=== PATIENT | female | born 1985 | race Caucasian/White ===

== ENCOUNTER 2020-02-29 11:45 | Outpatient (CLI) | payer BC, SELFPAY ==
--- NOTE | ~2020-02-29 | MMUS_ITS ---
EXAMINATION: MM diagnostic crystal BI w alexander, US breast LT limited HISTORY: Palpable lumps of the upper outer quadrant of the left breast. TECHNIQUE: Craniocaudal, mediolateral, and mediolateral oblique 3-D tomosynthesis images of the breas ts were performed and synthetic 2-D images were generated. CAD analysis was submitted and interpreted . High resolution limited left breast ultrasound was performed. COMPARISON: None, baseline BREAST PARENCHYMAL COMPOSITION: The breasts are heterogeneously dense, which may obscure small masses . FINDINGS: MAMMOGRAPHIC FINDINGS: There is no evidence of suspicious mass, calcification, or architectural distortion in either breast to suggest malignancy. No mammographic correlate is identified for the reported palpable abnormalit ies of the left breast. ULTRASOUND: There is no evidence of focal abnormal solid or cystic lesion in the vicinity of the reported palpabl e abnormality of concern. IMPRESSION: 1. No specific mammographic or sonographic correlate is identified for the reported palpable abnormal ity of concern of the left breast. Further evaluation at this time should be based on clinical assess ment. Continued follow-up physical examination is recommended. 2. Recommend routine screening mammography beginning at age 40. BI-RADS Category 1: Negative Reviewed, dictated and finalized at location A. IMPRESSION: 1. No specific mammographic or sonographic correlate is identified for the repo rted palpable abnormality of concern of the left breast. Further evaluation at this time should be based on clinical assessment. Continued follow-up physical examination is recommended. 2. Recommend routine screening mammography beginning at age 40. BI-RADS Category 1: Negative
== END 2020-02-29 11:46 | disposition home or self-care (01) ==
PROVIDERS: PCP Family Medicine; Visit Provider Obstetrics & Gynecology
DX: N63.20 Unspecified lump in the left breast, unspecified quadrant (principal)
CPT/HCPCS: 76642; 77062; 77066; G0279

== ENCOUNTER 2025-03-11 20:06 | Emergency (ER) | payer BC, SELFPAY ==
--- NOTE | ~2025-03-11 | CT_ITS ---
CT of the Abdomen and Pelvis: Indication: Abdominal pain Technique: 2.5 mm axial scans were obtained through the abdomen and pelvis following intravenous adm inistration of 100 cc of Omnipaque 350. Dose reduction technique was used on this scan by utilizing a utomated exposure control and iterative reconstruction technique. The dose-length product (DLP) was 2 77.23 mGy-cm. Findings: Scans through the lung bases are unremarkable. The liver, spleen, pancreas, gallbladder, adrenals and kidneys are within normal limits. No evidence of aortic aneurysm. No lymphadenopathy. There is wall thickening and mild pericolonic inflammatory change extensively involving the descendin g colon. No abscess or free air. Images through the pelvis were performed. Urinary bladder unremarkable. No pelvic mass seen. No ascit es. Impression: Infectious/inflammatory colitis involving the descending colon. Reviewed, dictated and finalized at location . Impression: Infectious/inflammatory colitis involving the descending colon.
[2025-03-11 20:07] VITALS: BP 142/98; PULSE 70; RESP 16; TEMP 36.4; O2SAT 98
--- OUTSIDE RECORDS SUMMARY | 2025-03-11 20:08 | XMS_ITS | Clinical Summary ---
Author Organization [facility] Address [address] [place] [address] Care Team Providers Care Curriculum Advisory Teacher Name Role Phone Lennox Blackmon MD Primary Care Provider [phone] Allergies Active Allergy Reactions Criticality Noted Date Comments Oxycodone Hives High 02/14/2014 Medications ALPRAZolam (XANAX) 1 mg tablet Take 1 mg by mouth nightly as needed for Anxiety. Active etonogestrel-Ethin yl Estradiol (NUVARING) 0.12-0.015 mg/24 hr RingIndications:We ll woman exam with routine gynecological exam Insert one ring for 3 weeks, remove for 1 week,repeat again.. 1 Ring 11 7 Active Active Problems Problem Noted Date Diagnosed Date RLTCS 09/1909/19/2015 History of PCOS 06/01/2014 Anovulation 06/01/2014 Resolved Problems Problem Noted Date Diagnosed Date Resolved Date Diet controlled gestational diabetes mellitus in third trimester 08/23/2015 01/07/2017 Supervision of normal pregna ncy in third trimester 03/26/2015 01/07/2017 Amenorrhea 06/01/2014 03/26/2015 Immunizations Immunization Administration Dates Next Due (Treatful)(12 YR UP) COVID-19 VACCINE - EMERGENCY USE AUTHORIZATION, MRNA, [id number](PF) 30 MCG/0.3 ML IM SUSP 10/27/2020 Influenza Seasonal Unspecifi ed Formulation IM 08/04/2024,09/04/2023,09/04/2023,2020,08/18/2020,08/21/2019 Social History Tobacco Use Types Packs/Day Years Used Date Smoking Tobacco: Former Cigarettes 0 02/15/2004 - 01/03/2015 Smokeless Tobacco: Never Alcohol Use Standard Drinks/Week Comments No 0 (1 standard drink = 0.6 oz pur e alcohol) Comments No Sex and Gender Information Value Date Recorded Sex Assigned at Not on file Legal Sex Female 9:18 AM CDT Gender Identity Not on file Sexual Orientation Not on file Last Filed Vital Signs Vital Sign Reading Time Taken Comments Blood Pressure 149/94 01/07/2017 10:00 AM BLACKENER Pulse 80 01/07/2017 10:00 AM BLACKENER Temperature 36.8 C (98.2 F) 09/23/2015 7:22 AM BLACKENER Respiratory Rate 16 09/23/2015 7:22 AM BLACKENER Oxygen Saturation 98% 09/23/2015 7:22 AM BLACKENER Inhaled Oxygen Concentration - - Weight 57.2 kg (126 lb) 01/07/2017 10:00 AM BLACKENER Height 157.5 cm (5' 2 ) 01/07/2017 10:00 AM BLACKENER Body Mass Index 23.05 01/07/2017 10:00 AM BLACKENER Plan of Treatment Health Maintenance Due Date Last Done Comments HEPATITIS B VACCINES (1 of 3 - 19+ 3-dose series) 2003 HPV/Cotest (21-29) 01/07/2022 01/07/2017, 0 03/12/2015, 02/14/2014 HPV/Cotest (30-65) 01/07/2022 01/07/2017, 0 03/12/2015, 02/14/2014 CERVICAL CANCER SCREENING 12/17/2023 PAP SMEAR 12/17/2023 12/17/2020, 11/08, 01/07/2017, Additional history exists COVID-19 Vaccine ( season) 2024 10/27/2020 BREAST CANCER SCREENING 2024 02/29/2020, 02/28 DTAP/TDAP/TD VACCINES (3 - Td or Tdap) 06/17/2026 06/17/2016, 07/27/2010 INFLUENZA VACCINE Completed 08/04/2024, , 09/04/2023, Additional history exists HPV VACCINES Aged Out No longer eligi ble based on patient's age to complete this topic Procedures Procedure Name Priority Date/Time Associated Diagnosis Comments CERV/VAG CYTO SCREEN PAP RLFX HPV Routine 01/07/2017 10:17 AM BLACKENER Well woman exam with routine gynecological exam from Last 3 Months or Most Recently Relevant to Health Maintenance Results * CERV/VAG CYTOPATH, THIN PREP IMAGR RFLX HPV (01/07/2017 10:17 AM BLACKENER) CLINICAL INFORMATION SEE COMMENT 01/14/2017 9:52 AM BLACKENER [facility] Comment:Information not prov ided LAST MENSTRUAL PERIOD SEE COMMENT 01/14/2017 9:52 AM BLACKENER [facility] Comment:Information not prov ided PREV PAP: SEE COMMENT 01/14/2017 9:52 AM BLACKENER [facility] Comment:Information not prov ided PREV BX: SEE COMMENT 01/14/2017 9:52 AM BLACKENER [facility] Comment:Information not prov ided SOURCE Endocervix 01/14/2017 9:52 AM BLACKENER [facility] ADEQUACY: SEE COMMENT 01/14/2017 9:52 AM BLACKENER [facility] Comment: Satisfactory for evaluation. Endocervical/transformation zone component present. Age and/or menstrual status not provided PAP INTERP SEE COMMENT 01/14/2017 9:52 AM BLACKENER [facility] Comment:Negative for intraep ithelial lesion or malignancy. COMMENT SEE COMMENT 01/14/2017 9:52 AM BLACKENER [facility] Comment: This Pap test has been evaluated with computer assisted technology. LEAD INSPECTOR: SEE COMMENT 2016 9:52 AM BLACKENER [facility] Comment: SAMIR, CT(ASCP) CT screening location: [place] [address] [address] [address] Genital SWAB OF ENDOCERVIX / Unknown 01/07/2017 10:17 AM BLACKENER 01/07/2017 8:58 PM BLACKENER Narrative [facility] - 01/14/2017 9:52 AM BLACKENER Performing Organization Information: Site ID: [place] Name: [facility] Address: [address] [place] [address] Director: Pedro Raya MD us Cesar Lea MD PATHOLOGY/CYTOLOGY ORDERABLES Fi nal Result [facility] from Last 3 Months or Most Recently Relevant to Health Maintenance Insurance [facility] [employer] ACCESS CHOICE Advance Directives For more information, please contact: [phone] * Full Code (Latest Code Status on File) Date Activated Date Inactivated Comments 09/19/2015 8:19 PM 09/23/2015 3:04 PM * Full Code Date Activated Date Inactivated Comments 09/19/2015 4:24 PM 09/19/2015 8:19 PM Care Teams Curriculum Advisory Teacher Relationship Specialty Start Date End Date Lennox Blackmon MD PCP - General Family Practice 02/14/14
--- OUTSIDE RECORDS SUMMARY | 2025-03-11 20:08 | XMS_ITS | Clinical Summary ---
Author Organization [facility] Address [address] [place] [address] Care Team Providers Care Tank Car Loader Name Role Phone Cesar Lea MD Unavailable Yonas Clemons MD Primary Care Provider [phone] Source Comments [facility],non-owned Affiliates and Associated Physician Practices is amultiple site organization consisting of ambulatory clinics and hospital sitesin [place], [place], [place] and [place]. This disclosure is being madepursuant to the Care Everywhere program and may not contain all information available regarding this patient. Last updated 18.[facility] Allergies Active Allergy Reactions Criticality Noted Date Comments Oxycodone-Acetaminophen 10/25/2013 Hives and itching Medications * Be aware that medications may not be up to date on this document. Alwaysverify current medications with the patient. ALPRAZolam (XANAX) 1 MG tablet Take 1 Tab by mouth once daily as needed. 30 Tab 0 01/01/2015 Active amphetamine-dext roamphetamine XR 24hr (ADDERALL XR) 30 MG capsule Take 1 Cap by mouth once daily. 30 Cap 0 01/14/2015 Active meclizine (ANTIVERT) 25 MG tablet Take 1 Tab by mouth 3 times daily as needed for Dizziness. 30 Tab 1 02/19/2015 Active Active Problems Problem Noted Date Diagnosed Date ADD (attention deficit disorder) 10/26/2014 Migraines Anxiety Comments Yes Immunizations Immunization Administration Dates Next Due INFLUENZA VACCINE, TRIV. (AF LURIA, FLUZONE TRIVALENT; 6MO+) (IIV3) 10/25/2013 DTaP VACCINE IM (6wk-6yrs) 07/27/2010 HEP B VACCINE ADOL/ADULT 2 DOSE 10/22/1997,05/14,04/12/1997 MMR 07/10/1993,02/07/1986 Social History Tobacco Use Types Packs/Day Years Used Date Smoking Tobacco: Never Alcohol Use Standard Drinks/Week Comments No 0 (1 standard drink = 0.6 oz pur e alcohol) Comments Yes Sex and Gender Information Value Date Recorded Sex Assigned at Not on file Legal Sex Female 10:32 AM CYLINDER BATCHER Gender Identity Not on file Sexual Orientation Not on file Last Filed Vital Signs Vital Sign Reading Time Taken Comments Blood Pressure 118/70 02/19/2015 10:30 AM CDT Pulse 76 02/19/2015 10:02 AM CDT Temperature 37.2 C (98.9 F) 02/19/2015 10:02 AM CDT Respiratory Rate 20 02/19/2015 10:02 AM CDT Oxygen Saturation - - Inhaled Oxygen Concentration - - Weight 66.7 kg (147 lb) 02/19/2015 10:02 AM CDT Height 157.5 cm (5' 2 ) 02/19/2015 10:02 AM CDT Body Mass Index 26.89 02/19/2015 10:02 AM CDT Plan of Treatment Health Maintenance Due Date Last Done Comments MAMMOGRAM 1984 HIV SCREENING 1999 HEPATITIS C SCREENING 11/15/2002 LIPID TESTING 10/26/2019 10/26/2014, 10/27/2013 DTAP/TDAP/TD VACCINES (2 - Tdap) 07/27/2020 07/27/2010 COVID-19 VACCINE (1 - 2023-2 5 season) 2024 DEPRESSION SCREENING 11/08/2024 INFLUENZA VACCINE (Season Ended) 2025 10/25/2013 ZOSTER VACCINE (1 of 2) 2034 Respiratory Syncytial Virus (RSV) Vaccine Pt: or over 60 yrs (1 - 1-dose 75+ series) 2059 HEPATITIS B VACCINE Completed 10/22/1997, 05/14/1997, 04/12/1997 HIB VACCINE Aged Out No longer eligi ble based on patient's age to complete this topic HPV VACCINE Aged Out No longer eligi ble based on patient's age to complete this topic MENINGOCOCCAL (Group B) VACCINE SHARED DECISION-MAKING Aged Out No longer eligible based on patient's age to complete this topic MENINGOCOCCAL GROUPS A/C/Y/W VACCINE Aged Out No longer eligible b ased on patient's age to complete this topic PNEUMOCOCCAL VACCINE Aged Out No long er eligible based on patient's age to complete this topic Procedures Procedure Name Priority Date/Time Associated Diagnosis Comments LIPID PROFILE Routine 10/26/2014 10:11 AM CYLINDER BATCHER Annual physical exam Lipid screening from Last 3 Months or Most Recently Relevant to Health Maintenance Results * (ABNORMAL) LIPID PROFILE (10/26/2014 10:11 AM CYLINDER BATCHER) Cholesterol 173 100 - 199 mg/dL [facility] ACCOUNT BILL Triglycerides 135 0 - 149 mg/dL [facility] ACCOUNT BILL HDL Cholesterol 45 >39 mg/dL [facility] ACCOUNT BILL Comment: According to ATP-III Guidelines, HDL-C >59 mg/dL is considered a negative risk factor for CHD. VLDL Calculated 27 5 - 40 mg/dL [facility] ACCOUNT BILL LDL Calculated 101(H) 0 - 99 mg/dL [facility] ACCOUNT BILL Comment NOT NEEDED [facility] ACCOUNT BILL Comment:Ancillary determined the test is not needed Blood specimen (specimen) BLOOD SPECIMEN / Unknown 10/26/2014 10:11 AM CYLINDER BATCHER 10/26/2014 12:28 PM CYLINDER BATCHER Narrative Resulting Agency Comment [facility] [address] [facility] [id number] Lennox Blackmon MD LAB - CHEMISTRY ORDERABLES Fin al Result [facility] ACCOUNT BILL [address] [place] [address] from Last 3 Months or Most Recently Relevant to Health [place] [address] ANTHEM ANTHEM Care Teams Tank Car Loader Relationship Specialty Start Date End Date Yonas Clemons MD [facility] [address] [place] [address] PCP - General 03/28/18 Cesar Lea MD [address] [facility] [address] [place] [address] Obstetrics and Gynecology 04/27/14
--- OUTSIDE RECORDS SUMMARY | 2025-03-11 20:08 | XMS_ITS | Data Portability ---
Author Organization [facility] Locu, Main Office Address [address] [place] [address] Assessment No assessment recorded. Plan of Treatment Reminders Order Date Submit Date Provider Last Modified By Organization Details Last Modified Time Details Appointments Follow Up 15 2024 09:30A LEVI Powell Not available Not available Not available Lab drug screen, urine 2024 025 [facility] (Lab), [address] [place], [address], 12/26/2024 04:24:41 CMP, serum or plasma [address] (Lab), [facility] [address], [address], 06/23/2024 09:17:20 lipid panel, serum [address] (Lab), [address], [address], 06/23/2024 09:17:21 CBC w/ auto diff [address] (Lab), [address], [address], 06/23/2024 09:17:21 HbA1c (hemoglob in A1c), blood [address] (Lab), [facility] [address], [address], 06/23/2024 09:17:21 TSH, serum or plasma [address] (Lab), [address] [place] [address], [address], 06/23/2024 09:17:21 vitamin D, 25-hydrox y, total, serum [address] (Lab), [address] [place] [address], [address], 06/23/2024 09:17:21 Referral None recorded. Procedures None recorded. Surgeries None recorded. Imaging None recorded. Medication Orders alprazola m 1 mg tablet 2023 024 [facility]/Pharmacy #3259, [address] [place], [address], 09/19/2024 10:22:17 dextroamp hetamine- amphetami ne 10 mg tablet 2023 024 [facility]acy #3259, [address] [place], [address], 09/19/2024 10:22:17 dextroamp hetamine- amphetami ne ER 30 mg 24hr capsule,e xtend release 2023 [facility]/Pharmacy #3259, [address] [place], [address], 09/19/2024 10:22:18 Ubrelvy 50 mg tablet 2023 024 [facility]/Pharmacy #3259, [address] [place], [address], 06/16/2024 09:29:38 alprazola m 1 mg tablet 2023 024 [facility] #3259, [address] [place], [address], 06/16/2024 09:29:42 dextroamp hetamine- amphetami ne 10 mg tablet 2023 024 [facility] [address] [place], [address], 06/16/2024 09:29:41 dextroamp hetamine- amphetami ne ER 30 mg 24hr capsule,e xtend release 2023 024 [facility] [address] [place], [address], 06/16/2024 09:29:42 Patient TargetsNo targets recorded. Patient Instructions Encounter Date Encounter Id Patient Instructions Last Modified By Organization Details Last Modified Time 12/28/2023 [id number] get BP rechecked on her own [id number] Not available 01/05/2024 12:02:29 09/19/2024 [id number] wrote down Saji : [employer] for her to get , write out thoughts , she collins them . get book Finding Your St[employer] . we can also try vistaril or buspar [id number] Not available 09/19/2024 10:35:06 Reason for Referral None Reported. Results Created Date Observation Date Name Description Value Unit Range Abnormal Flag Note LastModifiedBy Organization Detail LastModifiedTime Result Notes None recorded. 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 Procedures Surgical History Date Name Laterality Status Provider Name and Address Organization Details Recorded Time delivery completed Tania Ayala RN [facility] [employer] [facility] 06/16/2024 08:59:10 Imaging Results None recorded. Procedure Notes None recorded. Medical Equipment None Reported. Allergies Allergen ID Allergen Name Allergen Category Reaction Reaction Severity Criticality Documentation Date Start Date Code Code System Note Provider Name and Address Organization Details Recorded Time 61241 acetamino phen / oxycodone medicatio n hives Not available Not available 01/06/2023 38264 3 RxNorm Not Available [facility] 3 18:01:58 Medications Name Sig Start Date Stop Date Status Note LastModified by Organization Details LastModified Time nifedipine ER 30 mg tablet,exte nded release 24 hr active Not Available Not Available Not Available Mirena 21 mcg/24 hr (up to 8 years) 52 mg intrauterin e device 06/16 completed Not Available Not Available Not Available fluconazole 100 mg tablet active Not Available Not Available Not Available hydrocodone 7.5 mg-ibuprofe n 200 mg tablet active Not Available Not Available Not Available ibuprofen 800 mg tablet TAKE 1 TABLET BY MOUTH EVERY 8 HOURS FOR PAIN active Not Available Not Available No t Available alprazolam 1 mg tablet TAKE 1 TABLET BY MOUTH TWICE A DAY active Not Available Not Available No t Available fluconazole 150 mg tablet TAKE 1 TABLET BY MOUTH NOW 11/16 completed Not Available Not Available Not Available glyburide 2.5 mg tablet active Not Available Not Available Not Available sumatriptan 100 mg tablet TAKE 1 TABLET BY MOUTH AT THE ONSET OF A HEADACHE AND MAY REPEAT IN 2 HOURS NEEDED 06/16 completed Not Available Not Available Not Available hydrocodone 5 mg-acetamin ophen 325 mg tablet TAKE 1 TABLET EVERY 4 TO 6 HOURS NEEDED FOR PAIN active Not Available Not Available No t Available meloxicam 15 mg tablet Take 1 tablet every day by oral route. 06/16 completed Not Available Not Available Not Available dextroamphe tamine-amph etamine 10 mg tablet TAKE 1 TABLET BY MOUTH ONCE DAILY AT 3PM active Not Available Not Available No t Available Tubersol 5 tub. unit/0.1 mL intradermal injection solution 07/13 completed [facility]# [id number] [phone] Not Available Not Available Not Available Zithromax Z-Taran 250 mg tablet Take 2 TABLET EVERY DAY by oral route for 1 day. Than 1 tablet for 4 days 03/01 completed Not Available Not Available Not Available penicillin V potassium 500 mg tablet active Not Available Not Available Not Available ciprofloxac in 500 mg tablet Take 1 tablet every 12 hours by oral route. 09/04 completed Not Available Not Available Not Available ondansetron 8 mg disintegrat ing tablet Place 1 tablet 3 times a day by transling ual route as needed. 06/16 completed Not Available Not Available Not Available oxycodone-a cetaminophe n 5 mg-325 mg tablet 09/04 completed Not Available Not Available Not Available alprazolam 0.5 mg tablet TAKE 1 TABLET BY MOUTH THREE TIMES A DAY NEEDED FOR 30 DAYS active Not Available Not Available No t Available amoxicillin 875 mg tablet 1 TABLET TWICE A DAY active Not Available Not Available No t Available dextroamphe tamine-amph etamine ER 20 mg 24hr capsule,ext end release TAKE 1 CAPSULES BY MOUTH ONCE DAILY AT 2 PM 10/12 completed Not Available Not Available Not Available dextroamphe tamine-amph etamine 20 mg tablet Take 1 tablet every day by oral route. 04/20 completed Not Available Not Available Not Available ibuprofen 600 mg tablet active Not Available Not Available Not Available methylpredn isolone 4 mg tablets in a dose pack TAKE BY MOUTH DIRECTED ON INSIDE OF PACKAGE 08/18 completed Not Available Not Available Not Available dextroamphe tamine-amph etamine ER 30 mg 24hr capsule,ext end release TAKE 1 CAPSULE BY MOUTH EVERY DAY active Not Available Not Available No t Available naproxen 500 mg tablet 09/04 completed Not Available Not Available Not Available methylpheni date ER 36 mg tablet,exte nded release 24 hr Take 1 tablet every day by oral route. 08/05 completed Not Available Not Available Not Available amoxicillin 875 mg-potassiu m clavulanate 125 mg tablet TAKE 1 TABLET BY MOUTH EVERY 12 HOURS UNTIL GONE 08/18 completed Not Available Not Available Not Available NuvaRing 0.12 mg-0.015 mg/24 hr vaginal Insert 1 vaginal ring every 3 weeks by vaginal route as needed. active Not Available Not Available No t Available nitrofurant oin monohydrate /macrocryst als 100 mg capsule active Not Available Not Available Not Available Vyvanse 50 mg capsule Take 1 capsule every day by oral route. active Not Available Not Available No t Available Vyvanse 40 mg capsule Take 1 capsule every day by oral route. 05/04 completed Not Available Not Available Not Available OneTouch Delica Lancets 33 gauge active Not Available Not Available Not Available OneTouch Verio test strips active Not Available Not Available Not Available Ubrelvy 50 mg tablet Take by oral route for 22 days. active Not Available Not Available No t Available QuickVue At-Home COVID-19 Test kit TEST DIRECTED TODAY 11/16 completed Not Available Not Available Not Available Vitals Date Recorded Body height Body mass index (BMI) Body weight Body temperature Heart rate Oxygen saturation Oxygen saturation in Arterial blood by Pulse oximetry Systolic blood pressure Diastolic blood pressure Provider Name and Address Organization Details Last Updated DateTime 3 160.02 cm 23.3 kg/m2 12481.7 g 98.1 [degF] 91 /min 87 % 87 % 140 mm[Hg] 93 mm[Hg] Nina Peace MA [facility] 3 11:33:33 Date Recorded Body height Body mass index (BMI) Body weight Body temperature Heart rate Oxygen saturation Oxygen saturation in Arterial blood by Pulse oximetry Respiratory rate Systolic blood pressure Diastolic blood pressure Provider Name and Address Organization Details Last Updated DateTime 4 160.02 cm 24.4 kg/m2 87178.7 5 g 97.3 [degF] 100 /min 98 % 98 % 16 /min 150 mm[Hg] 94 mm[Hg] Emmie Suarez RN [employer] [facility] 4 11:03:48 Date Recorded Body height Body mass index (BMI) Body weight Body temperature Heart rate Oxygen saturation Oxygen saturation in Arterial blood by Pulse oximetry Respiratory rate Systolic blood pressure Diastolic blood pressure Provider Name and Address Organization Details Last Updated DateTime 4 160.02 cm 24.3 kg/m2 61832.1 5 g 98.6 [degF] 95 /min 99 % 99 % 16 /min 112 mm[Hg] 86 mm[Hg] Tania Ayala RN [facility] [employer] [facility] 4 09:01:07 Date Recorded Body height Body mass index (BMI) Body weight Body temperature Heart rate Oxygen saturation Oxygen saturation in Arterial blood by Pulse oximetry Systolic blood pressure Diastolic blood pressure Provider Name and Address Organization Details Last Updated DateTime 4 160.02 cm 25.7 kg/m2 02617.8 9 g 98.7 [degF] 109 /min 99 % 99 % 124 mm[Hg] 78 mm[Hg] Tania Ayala RN [facility] [employer] [facility] 4 10:01:13 Date Recorded Body height Body mass index (BMI) Body weight Body temperature Oxygen saturation Oxygen saturation in Arterial blood by Pulse oximetry Heart rate Systolic blood pressure Diastolic blood pressure Provider Name and Address Organization Details Last Updated DateTime 5 160.02 cm 26.3 kg/m2 75890.8 3 g 98.1 [degF] 98 % 98 % 86 /min 128 mm[Hg] 82 mm[Hg] Karla Chin RN [facility] [employer] [facility] 5 11:17:31 Social History None recorded. Functional Status None recorded. Mental Status None recorded. Family History Nothing Reported. Medical History No medical history recorded. Gynecological HistoryNo gynecological history recorded. Obstetrics History GPAL:G 0 P 0 0 0 0 Immunizations Vaccine Type Date Status Note Provider Nam e and Address Organization Details Recorded Time Influenza, split virus, quadrivalent, PF 2 completed Not Available [facility] 01/06/2023 18:01:57 influenza, intradermal, quadrivalent, preservative free 7 completed Not Available [facility] 01/06/2023 18:01:57 Influenza, split virus, quadrivalent, preservative 6 completed Not Available [facility] 01/06/2023 18:01:57 Tdap 6 completed Not Available [facility] 01/06/2023 18:01:57 Influenza, split virus, quadrivalent, PF 8 completed Not Available [facility] 01/06/2023 18:01:57 Past Encounters Encounter ID Performer Location Encounter Start Date Encounter Closed Date Diagnosis/Indication Diagnosis SNOMED-CT Code Diagnosis ICD10 Code Diagnosis Note [id number] Yonas Clemons MD [facility] [place] [facility] [address] [place] [address] 03/25/2022 00:00:00 03/25/2022 21:02:50 [id number] Yonas Clemons MD [facility] [place] [facility] [address] , [place] [address] 08/18/2022 00:00:00 08/18/2022 11:08:49 [id number] Yonas Clemons MD [facility] [place] [address] [place] [address] y , [place] [address] 11/16/2022 00:00:00 11/16/2022 14:13:54 [id number] Yonas Clemons MD [facility] [place] [facility] [address] , [place] [address] 05/04/2023 09:37:24 05/04/2023 09:53:40 Attention deficit hyperactivity disorder, predominantly inattentive type 52108454 F90.0 Continue concerta and add dextroamph etamine at 3 pm to get through the day [id number] Yonas Clemons MD [facility] [place] [address] [place] [address] y , [place] [address] 08/24/2023 11:11:24 08/24/2023 12:18:56 Attention deficit hyperactivity disorder, predominantly inattentive type 98098134 F90.0 Will continue dextroamph etamine 30 mg ER at am and will add 20 mg ER at 2pm. [id number] Yonas Clemons MD [facility] [place] [address] 12/28/2023 10:35:28 12/28/2023 11:10:23 Attention deficit hyperactivity disorder, predominantly inattentive type 37691271 F90.0 Anxiety 83768695 F41.9 [id number] Sumit Vincent MD [address] [place] [address] [address] 06/16/2024 08:49:33 06/16/2024 09:33:26 Anxiety 28136532 F41.9 Attention deficit hyperactivity disorder, predominantly inattentive type 79110143 F90.0 Migraine 76117452 G43.90 9 Adult heal th examination 922588636 Z00.00 [id number] Sumit Vincent MD [address] [place] [address] 09/19/2024 09:51:19 09/19/2024 10:25:31 Anxiety 24542404 F41.9 Attention deficit hyperactivity disorder, predominantly inattentive type 70763381 F90.0 [id number] Sumit Vincent MD [address] [address] 12/25/2024 11:07:57 12/25/2024 11:30:19 Attention deficit hyperactivity disorder, predominantly inattentive type 26741280 F90.0 Long-term current use of stimulant 4080522654 2808671 Z79.899 Anxiety 82214476 F41.9 Health Concerns Section Related Observation LastModified by Organization Detai ls LastModified Time None Recorded Concern Status LastModified by Organization Details LastModified Time None Recorded Advance Directives Directive None Recorded Payers Encounter Date Sequence Insurance Name Policy Number Policy Kapoor Covered Member ID Kapoor Member ID Guarantor Name 08/24/2023 1 [place] [id number] Ameya Frank [id number] Shirley Frank 12/28/2023 1 [id number] Ameya Frank [id number] Shirley Frank 06/16/2024 1 [id number] Ameya Frank [id number] Shirley Frank 09/19/2024 1 [id number] Ameya Frank [id number] Shirley Frank 12/25/2024 1 [place] [id number] Ameya Frank [id number] Shirley Frank Notes Date Note Type Note Provider Name and Address Organization Details Recorded Time 08/24/2023 text/html Here today for a med check. Doing ok. The short acting is not working but does not help. Wants to try 2 long acting adderal one in the am and one at 2 pm. Yonas Clemons MD [address], [place], [address], [place] 08/25/2023 08:45:10 12/28/2023 text/html needs a 3 month visit LEVI Arenas [address] [employer], [place], [address], [place] 01/05/2024 12:02:35 06/16/2024 text/html Has tried imitre x , topamax . adopted LEVI Arenas [address], [place], [address], [place] 06/27/2024 17:02:09 09/19/2024 text/html she has a therapist , willing to cut back on alprazolam ..... LEVI Arenas [address], [place], [address], [place] 10/10/2024 15:21:41 12/25/2024 text/html no changes LEVI Arenas [address], [place], [address], [place] 12/29/2024 16:12:09 OBGyn Episode No OBEpisode recorded.
--- OUTSIDE RECORDS SUMMARY | 2025-03-11 20:50 | XMS_ITS | Clinical Summary ---
Author Organization [facility] Address [address] [place] [address] Care Team Providers Care Cloth Shrinking Supervisor Name Role Phone Lennox Blackmon MD Primary Care Provider [phone] Allergies Active Allergy Reactions Criticality Noted Date [...] 03/26/2015 Immunizations Immunization Administration Dates Next Due (Insurance Noodle)(12 YR UP) COVID-19 VACCINE - EMERGENCY USE AUTHORIZATION, MRNA, [id number](PF) 30 MCG/0.3 ML IM SUSP 10/27/2020 Influenza [...] Comments Blood Pressure 149/94 01/07/2017 10:00 AM [facility] Pulse 80 01/07/2017 10:00 AM [facility] Temperature 36.8 C (98.2 F) 09/23/2015 7:22 AM [facility] Respiratory Rate 16 09/23/2015 7:22 AM [facility] Oxygen Saturation 98% 09/23/2015 7:22 AM [facility] Inhaled Oxygen Concentration - - Weight 57.2 kg (126 lb) 01/07/2017 10:00 AM [facility] Height 157.5 cm (5' 2 ) 01/07/2017 10:00 AM [facility] Body Mass Index 23.05 01/07/2017 10:00 AM [facility] Plan of Treatment Health Maintenance Due Date [...] PAP RLFX HPV Routine 01/07/2017 10:17 AM [facility] Well woman exam with routine gynecological exam from Last 3 Months or Most Recently Relevant to Health Maintenance Results * CERV/VAG CYTOPATH, THIN PREP IMAGR RFLX HPV (01/07/2017 10:17 AM [facility]) CLINICAL INFORMATION SEE COMMENT 01/14/2017 9:52 AM [facility] Comment:Information not prov ided LAST MENSTRUAL PERIOD SEE COMMENT 01/14/2017 9:52 AM [facility] Comment:Information not prov ided PREV PAP: SEE COMMENT 01/14/2017 9:52 AM [facility] Comment:Information not prov ided PREV BX: SEE COMMENT 01/14/2017 9:52 AM [facility] Comment:Information not prov ided SOURCE Endocervix 01/14/2017 9:52 AM [facility] ADEQUACY: SEE COMMENT 01/14/2017 9:52 AM [facility] Comment: Satisfactory for evaluation. Endocervical/transformation zone component present. Age and/or menstrual status not provided PAP INTERP SEE COMMENT 01/14/2017 9:52 AM [facility] Comment:Negative for intraep ithelial lesion or malignancy. COMMENT SEE COMMENT 01/14/2017 9:52 AM [facility] Comment: This Pap test has been evaluated with computer assisted technology. MUSIC REHABILITATION THERAPIST: SEE COMMENT 2016 9:52 AM [facility] Comment: SAMIR, CT(ASCP) CT screening location: [facility] [place] [address] [address] [address] Genital SWAB OF ENDOCERVIX / Unknown 01/07/2017 10:17 AM [facility] 01/07/2017 8:58 PM [facility] Narrative [facility] - 01/14/2017 9:52 AM [facility] Performing Organization Information: Site ID: SL Name: [facility] Address: [address] [place] [address] Director: Pedro Raya MD us Cesar Lea MD PATHOLOGY/CYTOLOGY ORDERABLES Fi nal Result [facility] from Last 3 Months or Most Recently Relevant to Health Maintenance Insurance [facility] i[employer]ng[employer] ACCESS CHOICE Advance Directives For more information, please contact: [phone] * Full Code (Latest Code Status on File) Date Activated Date Inactivated Comments 09/19/2015 8:19 PM 09/23/2015 3:04 PM * Full Code Date Activated Date Inactivated Comments 09/19/2015 4:24 PM 09/19/2015 8:19 PM Care Teams Cloth Shrinking Supervisor Relationship Specialty Start Date End Date Lennox Blackmon MD PCP - General Family Practice 02/14/14
--- OUTSIDE RECORDS SUMMARY | 2025-03-11 20:50 | XMS_ITS | Clinical Summary ---
Author Organization [facility] Address [address] [facility] [place] [address] Care Team Providers Care Basket Turner Name Role Phone Cesar Lea MD Unavailable Yonas Clemons MD Primary Care Provider [phone] Source Comments [facility],non-owned Affiliates and Associated Physician Practices is amultiple site organization consisting of ambulatory clinics and hospital sitesin [place] and [place]. This disclosure is being madepursuant to the Care Everywhere program and may not contain all information available regarding this patient. 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. [address] [place] [address] PCP - General 03/28/18 Cesar Lea MD [address] [facility] [address] [place] [address] Obstetrics and Gynecology 04/27/14
--- NOTE | 2025-03-11 21:05 | ED_ITS ---
HPI - Abdominal Pain General Chief Complaint: Abdominal Pain Stated Complaint: abd pain and rectal bleeding Time Seen by Provider: 03/11/25 20:41 Source: patient Mode of arrival: ambulatory Limitations: no limitations History of Present Illness HPI narrative: Patient is a 39-year-old female who presents the ED with report of lower abdominal pain and rectal bleeding. Patient reports over last 24 hours, she has been having persistent pain throughout her lower abdomen. She has also been passing blood clots in her stool. States initially she was passing only small blood clots, bright red in color. She has since had some brown stool mixed in with clots. She reports nausea and vomiting yesterday, but feels this may have been related to a migraine she was experiencing. Denies previous history of rectal bleeding. She is not on any anticoagulation. Denies fevers. Denies urinary complaints. Related Data Home Medications ?Medication ?Instructions ?Recorded ?Confirmed ?Last Taken ?Type alprazolam 1 mg tablet (Xanax) 1 mg PO TID PRN Anxiety 10/18/19 10/17/19 History Allergies Allergy/AdvReac Type Severity Reaction Status Date / Time Opioids - Morphine Analogues Allergy Mild Hives Verified 03/11/25 21:50 acetaminophen (From Percocet) Allergy Rash Verified 03/11/25 21:50 oxycodone (From Percocet) Allergy Rash Verified 03/11/25 21:50 Review of Systems 2 Review of Systems: All systems reviewed & are unremarkable except as noted in HPI. All systems reviewed & are unremarkable except as noted in HPI and below PMFSH Past Medical History Medical History Uterine fibroid Anxiety Surgical History Surgical History History of dilatation and curettage History of laparoscopy History of arthroscopic knee surgery Right History of section Social History Social History Smoking packs per day: 0.5 Smoking cigarettes per day: 10.0 Years smoked: 8 Smoking pack-years: 4.00 Smoking status: Former smoker Alcohol intake: current Exam 2 Narrative: GENERAL: Mildly uncomfortable appearing, well-nourished, non-toxic, in no acute distress. HEAD: Normocephalic, atraumatic. RESPIRATORY: Airway patent, respirations nonlabored. Clear to auscultation bilaterally, no rales, rhonchi, wheezing. CARDIOVASCULAR: Regular rate and rhythm without murmurs, rubs, or gallops. ABDOMINAL: Soft, diffuse tenderness throughout lower abdomen, worst in LLQ, nondistended. Hyperactive BS. MUSCULOSKELETAL: Moves all extremities. No gross deformities. SKIN: Warm, dry, normal color. NEURO: A&O X3. Speech clear. PSYCHIATRIC: Appropriate mood and affect. Normal interaction. Course Vital Signs Vital signs: Vital Signs Temperature 97.6 F 03/11/25 20:07 Pulse Rate 70 03/11/25 20:07 Respiratory Rate 16 03/11/25 20:07 Blood Pressure 142/98 H 03/11/25 20:07 Pulse Oximetry 98 03/11/25 20:07 Oxygen Delivery Room Air 03/11/25 20:07 Temperature 97.6 F 03/11/25 20:07 Pulse Rate 66 03/11/25 23:16 Respiratory Rate 16 03/11/25 23:16 Blood Pressure 139/82 03/11/25 23:16 Pulse Oximetry 98 03/11/25 23:16 Oxygen Delivery Room Air 03/11/25 20:07 MDM - Abdominal Pain MDM Narrative Medical decision making narrative: Patient presented to ED with lower abdominal pain, bright red blood per rectum. Present over the last 24 hours. Vital signs stable upon arrival. Patient in no acute distress. No history of similar symptoms previously. Laboratory studies with leukocytosis of 11.6. Hemoglobin is stable at 14.3. CMP with potassium 3.3. Will replace. Normal LFTs and lipase. UA is clear. Urine is negative. CT scan of abdomen/pelvis was obtained showing evidence of colitis. Left colonic mural thickening. Consistent with clinical picture. Given leukocytosis with rectal bleeding, evidence of colitis, will start patient on antibiotics. Given 1st dose of Flagyl and Cipro in the ED. otherwise feel patient is safe for discharge home at this time. Recommended close follow-up with PCP, will refer to GI. Discussed strict return precautions. Advised to continue to monitor bleeding. Patient in agreement with plan. Feels comfortable going home. Discharged in stable condition. Of note patient had a documented allergy to oxycodone. She reported that she had tolerated morphine in the past. She was given a small dose of IV morphine 2 mg in the ED here today and developed hives and itching to her arm. ED nurse notified myself immediately and I evaluated patient at bedside. She was given IV benadryl with rapid improvement of symptoms. No evidence of airway compromise, respiratory distress, anaphylaxis. This was added to patient's allergy list. Medical Records Attestation: I reviewed the patient's medical records. Lab Data Attestation: I reviewed the patient's lab results. 03/11/25 21:14 03/11/25 21:14 Labs: Lab Results 03/11/25 03/11/25 Range/Units 21:14 21:32 WBC 11.6 H (4.5-10.0) K/mm3 RBC 4.59 (4.2-5.4) M/mm3 Hgb 14.3 (12.0-15.0) g/dL Hct 43.3 (37.0-47.0) % MCV 94.3 (80-100) fl MCH 31.2 (26-34) pg MCHC 33.0 (32-36) g/dl RDW 12.3 (11.5-14.5) % Plt Count 291 (150-375) k/mm3 MPV 9.8 (7.4-10.4) fl Immature Gran % (Auto) 0.2 (0-0.5) % Neut % (Auto) 58.2 (45.5-73.1) % Lymph % (Auto) 32.0 (18.3-44.2) % [place] % (Auto) 8.0 (2.6-8.5) % Eos % (Auto) 1.3 (0-4.4) % Baso % (Auto) 0.3 (0.2-1.2) % Lymph # (Auto) 3.72 H (0.9-3.2) K/mm3 [place] # (Auto) 0.9 H (0.1-0.6) K/mm3 Eos # (Auto) 0.2 (0-0.3) K/mm3 Baso # (Auto) 0.0 (0.0-0.1) K/mm3 Abs Immat Gran (auto) 0.02 (0.00-0.031) K/mm3 Absolute Neuts (auto) 6.8 H (1.3-6.7) K/mm3 Absolute Nucleated RBC 0.000 (0.0-0.012) K/mm3 Nucleated RBC % 0.0 (0.0-0.2) % PT 12.9 (11.1-14.7) Seconds INR 0.9 APTT 25.5 (22.3-36.8) Seconds Sodium 136 L (137-145) mmol/L Potassium 3.3 L (3.4-5.0) mmol/L Chloride 101 (98-107) mmol/L Carbon Dioxide 30 (22-30) mmol/L Anion Gap 5 (4-12) mmol/L BUN 7 D (7-17) mg/dL Creatinine 0.57 L (0.7-1.0) mg/dL Estim Creat Clear Calc 88 ml/min Estimated GFR > 60 (59 - ) Glucose 95 (65-110) mg/dL Calcium 8.7 (8.4-10.2) mg/dL Total Bilirubin 0.7 (0.2-1.3) mg/dL AST 17 (14-36) U/L ALT 13 (6-35) U/L Alkaline Phosphatase 68 (38-126) U/L Total Protein 7.0 (6.3-8.2) g/dL Albumin 4.1 (3.5-5.1) g/dL Lipase 34 (23-300) U/L Urine Color Yellow (Yellow) Urine Appearance Clear (Clear) Urine pH 8.5 (5.0-9.0) Ur Specific [place] 1.014 (1.001-1.035) Urine Protein Negative (Negative) mg/dL Urine Glucose (UA) Negative (Negative) mg/dL Urine Ketones Negative (Negative) mg/dL Ur Blood (Man) Negative (Negative) Urine Nitrate Negative (Negative) Urine Bilirubin Negative (Negative) Urine Urobilinogen 1.0 (<2.0) mg/dL Leukocyte Esterase Rfl Negative (Negative) KADE[place]/UL Urine Test Negative Imaging Data Attestation: I personally reviewed and interpreted this imaging study as follows: Radiologist's impression: STAT RAD CT abd/pelvis: Impression: Left colonic mural thickening compatible with colitis, infectious or inflammatory. No bowel obstruction. Normal appendix. No hydronephrosis or renal calculus. Discharge Plan Discharge Clinical Impression: Colitis, BRBPR (bright red blood per rectum) Patient Disposition: Home Condition: Stable Instructions: Antibiotic Form, Rectal Bleeding (ED), Colitis (ED) Additional Instructions: Take antibiotics as prescribed for colitis. Finish both courses. Do not drink alcohol while taking Flagyl as this can cause a vomiting reaction. Continue Tylenol and ibuprofen as needed for pain. Follow-up with your primary care doctor and/or GI for further evaluation. Continue to monitor bleeding. Return to ED if you experience worsening or severe pain, severe bleeding, unable to keep down food or drink, persistent fevers, or any other symptoms of concern. Patient Language: British Prescriptions: New metronidazole 500 mg tablet 500 mg PO Q8H 7 Days Qty: 21 0RF ciprofloxacin HCl 500 mg tablet 500 mg PO Q12H 7 Days Qty: 14 0RF No Action alprazolam [Xanax] 1 mg Tablet 1 mg PO TID PRN (Reason: Anxiety) famotidine [Pepcid] 40 mg tablet 40 mg PO DAILY Qty: 30 0RF ondansetron HCl [Zofran] 4 mg tablet 4 mg PO Q8H PRN (Reason: nausea and vomiting) Qty: 12 0RF Follow-up/Referrals: Carlton,MD Sumit [Primary Care Provider] - Akin Salas MD [Physician] - (GI) Time of Disposition: 01:07
[2025-03-11 21:15] VITALS: BP 147/94; PULSE 71; RESP 18; O2SAT 100
[2025-03-11 21:22] LABS: Basophils Percent Auto 0.3 % (0.2-1.2); Eosinophils Absolute Auto 0.2 K/mm3 (0-0.3); Eosinophils Percent Auto 1.3 % (0-4.4); Hematocrit 43.3 % (37.0-47.0); Hemoglobin 14.3 g/dL (12.0-15.0); Immature Granulocyte Absolute 0.02 K/mm3 (0.00-0.031); Immature Granulocyte Percent A 0.2 % (0-0.5); Lymphocytes Absolute Auto 3.72 K/mm3 (0.9-3.2); Mean Corpuscular Hemoglobin 31.2 pg (26-34); Mean Corpuscular Volume 94.3 fl (80-100); Mean Platelet Volume 9.8 fl (7.4-10.4); Monocytes Absolute Auto 0.9 K/mm3 (0.1-0.6); Neutrophils Absolute Auto 6.8 K/mm3 (1.3-6.7); Neutrophils Percent Auto 58.2 % (45.5-73.1); Platelet Count Result 291 k/mm3 (150-375); Red Blood Count 4.59 M/mm3 (4.2-5.4); Red Cell Distribution Width 12.3 % (11.5-14.5); White Blood Count 11.6 K/mm3 (4.5-10.0)
[2025-03-11] MEDS: ONDANSETRON INJ 4 MG/2 ML VIAL IV PUSH (21:26)
[2025-03-11] MEDS: MORPHINE SULFATE (*CRX) 2 MG/ML INJ IV PUSH (21:27)
[2025-03-11 21:34] LABS: INR 0.9; Prothrombin Time 12.9 Seconds (11.1-14.7)
[2025-03-11 21:35] LABS: Alanine Aminotransferase 13 U/L (6-35); Albumin Level 4.1 g/dL (3.5-5.1); Alkaline Phosphatase 68 U/L (38-126); Anion Gap 5 mmol/L (4-12); Aspartate Amino Transferase 17 U/L (14-36); Bilirubin,Total 0.7 mg/dL (0.2-1.3); Blood Urea Nitrogen 7 mg/dL (7-17); Calcium 8.7 mg/dL (8.4-10.2); Carbon Dioxide 30 mmol/L (22-30); Chloride 101 mmol/L (98-107); Estimated CRCL calculation 88 ml/min; Estimated Glomerular Filt Rate > 60; Glucose 95 mg/dL (65-110); Lipase 34 U/L (23-300); Partial Thromboplastin Time 25.5 Seconds (22.3-36.8); Potassium 3.3 mmol/L (3.4-5.0); Sodium 136 mmol/L (137-145)
[2025-03-11] MEDS: diphenhydrAMINE HCl INJ 50 MG/ML VIAL IV PUSH (21:35)
[2025-03-11 21:38] LABS: Add Urine Microscopic? NO; Appearance Urine Clear (Clear); Bilirubin Urine Negative (Negative); Blood Urine Negative (Negative); Color Urine Yellow (Yellow); Glucose Urine UA Negative (Negative); Ketones Urine Negative (Negative); Leukocyte Esterase Ur Negative LEU/UL (Negative); Nitrate Urine Negative (Negative); Protein Urine Negative (Negative); Specific Grav Ur 1.014 (1.001-1.035); pH Urine 8.5 (5.0-9.0)
--- NOTE | 2025-03-11 21:48 | PC.NURSE ---
called lab and spoke to Mike at this time about adding urine test on to urine sent down earlier
[2025-03-11 21:52] LABS: Pregnancy On Board Control Positive; Urine Pregnancy Test Negative
[2025-03-11 23:16] VITALS: BP 139/82; PULSE 66; RESP 16; O2SAT 98
[2025-03-12] MEDS: CIPROFLOXACIN 500 MG TAB PO (01:19)
[2025-03-12] MEDS: metroNIDAZOLE 500 MG TABLET PO (01:19)
[2025-03-12] MEDS: FLUCONAZOLE 150 MG TABLET PO (01:22)
--- NOTE | 2025-03-12 01:22 | PC.NURSE ---
Pt did receive potassium tablet. Computer scanner would not scan bar code. RN unable to document it at this time. PT DID RECEIVE POTASSIUM TABLET prior to discharge.
[2025-03-12] MEDS: POTASSIUM CHLORIDE 20 MEQ ER TABLET PO (01:23)
[2025-03-12 01:27] VITALS: BP 131/77; PULSE 77; RESP 17; O2SAT 99
== END 2025-03-12 01:27 | disposition home or self-care (01) ==
PROVIDERS: Emergency Provider Physician Assistant; PCP Family Medicine
DX: K52.9 Noninfective gastroenteritis and colitis, unspecified (principal); K62.5 Hemorrhage of anus and rectum; Z87.891 Personal history of nicotine dependence
CPT/HCPCS: 36415; 74177; 80053; 81003; 81025; 83690; 85025; 85610; 85730; 96374; 96375; 99284; A9270; J1200; J2270; J2405; Q9967